=== PATIENT | female | born 1955 | race African-American/Black ===

== ENCOUNTER 2018-05-01 13:39 | Emergency (ER) | payer BC ==
[~2018-05-01] VITALS: Ht 162.6 cm; Wt 100.0 kg
[~2018-05-01 13:39] MED LIST: IBUPROFEN 200MG TABLET ONE
[2018-05-01 14:00] VITALS: BP 136/77
[2018-05-01] MEDS ORDERED: IBUPROFEN 600MG TABLET PO ONE (14:15)
== END 2018-05-01 23:00 | disposition left against medical advice (07) ==
LOC: ER 13:39
DX: M54.5 Low back pain (principal); M25.562 Pain in left knee; W01.0XXA Fall on same level from slipping, tripping and stumbling without subsequent striking against object, initial encounter; Y93.89 Activity, other specified; Y92.89 Other specified places as the place of occurrence of the external cause; Y99.8 Other external cause status
CPT/HCPCS: 99281